=== PATIENT | male | born 1955 | race Two or more races ===

== ENCOUNTER 2017-10-21 13:47 | Inpatient (IN) | payer OTHER ==
--- NOTE | 2017-10-21 16:12 | EDPHY ---
H & P Stated Complaint: lac of sleep, paranoia and depression increasing for 3 weeks. Time Seen by Provider: 10/21/17 16:10 HPI/ROS: HPI: This is a 62-year-old male presents with Chief Complaint: lac of sleep, paranoia and depression increasing for 3 weeks. Location:psych Quality: Annabelle, psychosis Duration: 35-40 days Signs and Symptoms: + auditory hallucinations, no visual command hallucinations , no suicidal ideation with a plan, no homicidal ideation, paranoid Timing: Worsening, acute on chronic Severity: Severe Context: Patient has a history of bipolar manic depressive disorder presents from outpatient, followed by Dr. Davis, recently started on medications over the last few weeks, presents with complaints of insomnia, hearing voices telling him that he is worthless and his family members do not care for him, worsening depression including guilt, diminished self worth, shame, poor appetite, anhedonia. Patient reports that he had ECT therapy approximately 30- 35 years ago. He is requesting it today. 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 His daughter relates that he feels that he is an international fugitive and that people are watching him and are after him. Denies alcohol or recreational drug use. Medical problems include hypertension for which he takes losartan. Modifying Factors: None Comment: ROS: see HPI Constitutional: No fever, no chills, no weight loss Eyes: No blurred vision Respiratory: No shortness of breath, no cough Cardiovascular: No chest pain Gastrointestinal: No nausea, no vomiting, no diarrhea Genitourinary: No dysuria Extremities: No myalgias Neurologic: No weakness, no numbness Skin: No rashes Hematologic: No bruising, no bleeding MEDICAL/SURGICAL/SOCIAL HISTORY: pmh:manic depressive-bipolar disorder, hypertension psh:oral surgery, appendectomy Social history: Lives here in [place]. Daughter lives in [place]. CONSTITUTIONAL: Adult male, calm and cooperative, neat and tidy, awake and alert, no obvious distress HEENT: Atraumatic and normocephalic, PERRL, EOMI. Tympanic membranes clear. Oropharynx clear, no exudate and moist pink mucosa. Airway patent. No lymphadenopathy. No meningismus. Cardiovascular: Normal S1/S2, mild tachycardia, regular rhythm, without murmur rub or gallop. PULMONARY/CHEST: Symmetrical and nontender. Clear to auscultation bilaterally. Good air movement. No accessory muscle usage. ABDOMEN: Soft, nondistended, nontender, no rebound, no guarding, no peritoneal signs, no masses or organomegaly. No CVAT. EXTREMITIES: 2/2 pulses, strength 5/5, no deformities, no clubbing, no cyanosis or edema. NEUROLOGICAL: no focal neuro deficits. GCS 15. SKIN: Warm and dry, no erythema. no rash. Good capillary refill. PSYCH: Relatively good eye contact, no flight of ideas, organized thought process, fair insight and judgment, + auditory hallucinations, no visual command hallucinations, no suicidal ideation with a plan, no homicidal ideation , paranoid Exam Limitations: No limitations - Personal History Current Tetanus/Diphtheria Vaccine: Yes Current Tetanus Diphtheria and Acellular Pertussis (TDAP): Yes - Medical/Surgical History Hx Asthma: No Hx Chronic Respiratory Disease: No Hx Diabetes: No Hx Cardiac Disease: No Hx Renal Disease: No Hx Cirrhosis: No Hx Alcoholism: No Hx HIV/AIDS: No Hx Splenectomy or Spleen Trauma: No Other PMH: pmh:manic depressive,. psh:oral surgery, - Social History Smoking Status: Never smoked Constitutional: Initial Vital Signs Temperature (C) 36.8 C 10/21/17 13:55 Heart Rate 102 H 10/21/17 13:55 Respiratory Rate 16 10/21/17 13:55 Blood Pressure 157/116 H 10/21/17 13:55 O2 Sat (%) 96 10/21/17 13:55 O2 Delivery Mode Room Air Allergies/Adverse Reactions: No Known Allergies Allergy (Unverified 10/21/17 13:59) Home Medications: Medication Instructions Recorded Unobtainable 10/21/17 Medical Decision Making ED Course/Re-evaluation: Patient is here voluntarily. Calm and cooperative. No interventions needed at this time. Labs and UDS ordered. 1720: Reviewed labs and UDS; creatinine slightly above baseline; given 1 L normal saline and ate a meal tray. Medically clear for mental health evaluation. Advised WILL NOT BE ABLE TO BE EVALUATED UNTIL 20290: M1 accepted to 3Dr. Jason Cullen. Patient still remains calm and cooperative. This patient was seen under the supervision of my secondary supervising physician. I evaluated care for this patient independently. Patient's presentation, labs/imaging, treatment and plan of care were discussed with secondary supervising physician. Differential Diagnosis: Differential diagnosis includes but is not limited to functional in situational severe major depression, psychosis, manic episode, paranoia. - Data Points Laboratory Results: Laboratory Results 10/21/17 16:42 10/21/17 16:42 10/21/17 10/21/17 10/21/17 16:42 16:42 16:42 WBC 7.32 10^3/uL 10^3/uL (3.80-9.50) RBC 5.61 10^6/uL 10^6/uL (4.40-6.38) Hgb 16.1 g/dL g/dL (13.7-17.5) Hct 48.9 % % (40.0-51.0) MCV 87.2 fL fL (81.5-99.8) MCH 28.7 pg pg (27.9-34.1) MCHC 32.9 g/dL g/dL (32.4-36.7) RDW 15.4 % H % (11.5-15.2) Plt Count 261 10^3/uL 10^3/uL (150-400) MPV 9.0 fL fL (8.7-11.7) Neut % (Auto) 65.5 % % (39.3-74.2) Lymph % (Auto) 25.5 % % (15.0-45.0) O'Brien % (Auto) 7.1 % % (4.5-13.0) Eos % (Auto) 1.1 % % (0.6-7.6) Baso % (Auto) 0.5 % % (0.3-1.7) Nucleat RBC Rel Count 0.0 % % (0.0-0.2) Absolute Neuts (auto) 4.79 10^3/uL 10^3/uL (1.70-6.50) Absolute Lymphs (auto) 1.87 10^3/uL 10^3/uL (1.00-3.00) Absolute Monos (auto) 0.52 10^3/uL 10^3/uL (0.30-0.80) Absolute Eos (auto) 0.08 10^3/uL 10^3/uL (0.03-0.40) Absolute Basos (auto) 0.04 10^3/uL 10^3/uL (0.02-0.10) Absolute Nucleated RBC 0.00 10^3/uL 10^3/uL (0-0.01) Immature Gran % 0.3 % % (0.0-1.1) Immature Gran # 0.02 10^3/uL 10^3/uL (0.00-0.10) Sodium 143 mEq/L mEq/L (134-144) Potassium 4.2 mEq/L mEq/L (3.5-5.2) Chloride 108 mEq/L mEq/L (97-110) Carbon Dioxide 22 mEq/l mEq/l (22-31) Anion Gap 13 mEq/L mEq/L (8-16) BUN 27 mg/dL H mg/dL (7-23) Creatinine 1.4 mg/dL H mg/dL (0.7-1.3) Estimated GFR 51 Glucose 92 mg/dL mg/dL (70-100) Calcium 9.7 mg/dL mg/dL (8.5-10.4) Urine Opiates Screen NEGATIVE (NEGATIVE) Urine Barbiturates NEGATIVE (NEGATIVE) Ur Phencyclidine Scrn NEGATIVE (NEGATIVE) Ur Amphetamine Screen NEGATIVE (NEGATIVE) U Benzodiazepines Scrn NEGATIVE (NEGATIVE) Urine Cocaine Screen NEGATIVE (NEGATIVE) U Marijuana (THC) Screen NEGATIVE (NEGATIVE) Ethyl Alcohol < 10 mg/dL mg/dL (0-10) Medications Given: Discontinued Medications Sodium Chloride (Ns) 1,000 mls @ 0 mls/hr IV EDNOW ONE; Wide Open PRN Reason: Protocol Stop: 10/21/17 18:02 Last Admin: 10/21/17 18:12 Dose: 1,000 mls Departure - Departure Disposition: [facility] IP Clinical Impression: Bipolar affective, manic, severe w/ psych, Suicidal ideation Condition: Fair
[2017-10-21 17:00] LABS: % IMMATURE GRANULYOCYTES 0.3 % (0.0-1.1); ABSOLUTE IMMATURE GRANULOCYTES 0.02 10^3/uL (0.00-0.10); ADD DIFF? NO; ADD MORPH? NO; ADD SCAN? NO; ATYPICAL LYMPHOCYTE FLAG 0 (0-99); FRAGMENT RBC FLAG 0 (0-99); HEMATOCRIT 48.9 % (40.0-51.0); HEMOGLOBIN 16.1 g/dL (13.7-17.5); LEFT SHIFT FLG 0 (0-99); LIPEMIA HEMOLYSIS FLAG 80 (0-99); MEAN CELL HEMOGLOBIN 28.7 pg (27.9-34.1); MEAN CELL HEMOGLOBIN CONCENTR. 32.9 g/dL (32.4-36.7); MEAN CELL VOLUME 87.2 fL (81.5-99.8); PLATELET CLUMPS FLAG 0 (0-99); PLATELET COUNT 261 10^3/uL (150-400); RED BLOOD CELL COUNT 5.61 10^6/uL (4.40-6.38); RED CELL DISTRIBUTION WIDTH 15.4 % (11.5-15.2)
[2017-10-21 17:20] LABS: ANION GAP 13 mEq/L (8-16); CALCIUM 9.7 mg/dL (8.5-10.4); CARBON DIOXIDE 22 mEq/l (22-31); CHLORIDE 108 mEq/L (97-110); CREATININE 1.4 mg/dL (0.7-1.3); ETHANOL SERUM < 10 mg/dL (0-10); GLOMERULAR FILTRATION RATE 51; GLUCOSE 92 mg/dL (70-100); POTASSIUM 4.2 mEq/L (3.5-5.2); SODIUM 143 mEq/L (134-144)
[2017-10-21] MEDS ORDERED: NS 1,000 ML IV ONE (18:01)
[2017-10-22] MEDS ORDERED: MAG HYDROX/AL HYDROX/SIMETH 30 ML UDCUP PO PRN (02:06)
[2017-10-22] MEDS ORDERED: ACETAMINOPHEN 325 MG TAB PO PRN (02:06)
[2017-10-22] MEDS ORDERED: OLANZapine 5 MG TAB PO PRN (02:08)
[2017-10-22] MEDS: LOSARTAN POTASSIUM 25 MG TAB PO SCH (12:18)
--- NOTE | 2017-10-22 15:53 | BCON ---
[f rep st] [facility] CON[facility] INTERNAL MEDICINE CONSULTATION DATE OF CONSULTATION: 10/22/2017 REFERRING PHYSICIAN: Dom Barker MD REASON FOR REFERRAL: Medical clearance for inpatient [place] hospital stay. HISTORY OF PRESENT ILLNESS: This patient came to the [facility] Emergency Department for admission to [facility] for the purpose of obtaining electroconvulsive therapy for depression. He had previous electroconvulsive therapy which was quite successful several years ago, and he has been in the care of a psychiatrist in [place], [place], where he lives, without good response to medications. He complains of tinnitus, which he has had for several years and which precipitated his depression initially. He reports he has had extensive evaluation of the tinnitus including brain imaging and attempted treatment with a number of different modalities without success. He acknowledges that the tinnitus is worse when he is under stress or has impaired sleep. He feels fatigued at present and has had poor sleep lately, but otherwise is without acute complaint. MEDICATIONS: Prior to admission: 1. Losartan 25 mg p.o. daily. 2. Quetiapine 150 mg p.o. at bedtime. 3. Clonazepam 1 mg p.o. at bedtime. PAST MEDICAL HISTORY: 1. Depression. 2. Tinnitus. 3. Chronic kidney disease. 4. Hypertension. PAST SURGICAL HISTORY: He has had oral surgery after which the tinnitus commenced. 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 He smoked when he was young, but has quit for 27 years. He does not use alcohol. He is , but has marital discord and has been asked to move out of his home by his . FAMILY HISTORY: His father of a stroke. His mother of intracranial hemorrhage after a fall. His mother had depression. REVIEW OF SYSTEMS: He is concerned about not getting enough fluids. He received a liter of IV fluids in the emergency department and thought that was not enough. He says he urinates more than he drinks. He does not feel thirsty at present. He has had some weight loss and erratic eating in recent weeks to months due to not having money. He reports occasional chest pain. He denies dyspnea on exertion. He denies cough. He denies palpitations. He denies fevers or chills. He denies changes in his bowel habits. He reports frequent urination and asks whether a prostate exam can be done while he is here. Otherwise, a 10-point review of systems is negative. PHYSICAL EXAM: VITAL SIGNS: Blood pressure early this morning was 169/114. This was prior to receiving a dose of losartan. Heart rate 87, respiratory rate 14, oxygen saturation 95% on room air. Temperature is 36.6 degrees centigrade. His weight is 69.9 kg for a body mass index of 24.9. GENERAL: This is a well-nourished, well-developed man, appears his chronologic age, sitting up in bed, cooperative, and in no acute distress, with his daughter present. HEENT: Extraocular movements are intact. Pupils are equal, round, reactive to light. Mucous membranes are moist. Dentition is in good condition. There are no oropharyngeal mucosal lesions and no posterior oropharyngeal mucus. NECK: Supple with no thyromegaly. HEART: There is a regular rate and rhythm with no murmurs, rubs, or gallops. LUNGS: Clear to auscultation bilaterally. ABDOMEN: Soft, nontender, nondistended with normoactive bowel sounds. EXTREMITIES: There is no cyanosis, clubbing, or edema. Radial and dorsalis pedis pulses are 2+ bilaterally. NEUROLOGIC: He is alert and oriented x3. He is somewhat slow to answer questions and occasionally somewhat vague. Cranial nerves 2-12 are grossly intact. There is no focal weakness. Sensation is intact to light touch. Deep tendon reflexes are globally hypoactive. LABORATORY STUDIES: Drawn in the emergency department, CBC was overall within normal limits. He had a slight elevation in his red cell distribution width at 15.4 with the upper limit of normal being 15.2. Serum chemistry revealed an elevated creatinine at 1.4 and a BUN of 27. Otherwise, renal function and electrolytes were within normal limits. Serum toxicology screen was negative for ethyl alcohol and urine toxicology screen was negative for any substances of abuse. He had recent testing on 10/11/2017, in which he also had renal insufficiency with an estimated creatinine clearance of 57. TSH was normal, creatine kinase was negative. ASSESSMENT/RECOMMENDATIONS: 1. Mental health issues, pending further evaluation and management per Psychiatry and the mental health team. 2. Chronic kidney disease stage 3. Unclear if he has been consistent with taking losartan. There may be an element of dehydration with the elevated BUN, however, it is less than a 20:1 ratio of BUN to creatinine, so this may be chronic. We will repeat a BMP in the morning as he was hydrated in the emergency department after lab tests were drawn. 3. Hypertension. Continue losartan. Given how high his blood pressure is, he will likely need more than 1 agent. Will follow along and add or adjust medications as necessary. 4. Tinnitus, unclear etiology. Observe for improvement as his sleep improves and his psychiatric condition is treated. 5. Chest pain, atypical with a recent normal creatine kinase. I assume that EKG will be performed prior to initiating ECT. It is reassuring that he had recently had a normal creatine kinase. I see no medical contraindications to this patient's continued stay in the inpatient rehabilitation unit or to any psychiatric medications or procedures. Thank you very much for including me in the care of this patient, and please do not hesitate to contact me or the hospitalist service should there be need for further medical evaluation. /[id number]/MODL MTDD
--- NOTE | 2017-10-22 15:54 | BAPA ---
[f rep st] ADMISSION PSYCHIATRIC ASSESSMENT DATE OF SERVICE: 10/22/2017 CHIEF COMPLAINT: "I have many worries and a lot of guilt and shame." HISTORY OF PRESENT ILLNESS: Patient is a 62-year-old male, originally of [place] extraction, who has a history of major depression dating back to his 20s, but has been a focus of clinical attention sin ce 2013. Around this time, he states he had some problems with dental implants that had become infec thiago and when he had them removed and had a root canal performed, he began to hear a hissing sound in his ears. He stated that this was very troublesome to him and that he saw many doctors in regard to possible tinnitus and that nothing was improving it. He states that he then had trouble working and felt like he may have lost his healing touch. 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 He states that this snowballed into a full depression in which he was experiencing a depressed mood, feelings of helplessness and hopelessness, low energy, decreased appetite, insomnia , trouble concentrating, and the emergence of some psychosis. He apparently had become paranoid that others were trying to harm him or his and that they may be acting against him in a professional manner as well. 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 He then became convinced his was and his family took him for several emergent psychiatric evaluations. Eventually he ended u p at [facility] where he was admitted from 08/09/2014 to 09/10/2014, for major depressi on with psychosis. That time he was treated with combination of nortriptyline and olanzapine, which the discharge summary from [facility] indicates was helpful. He was, however, slow to respond and was then also treated with a course of 7 ECT treatments. The specifics of the ECT treatments are no t listed in the discharge summary. They stated, however, he had a robust response to this returning to euthymic state and being discharged in the near normal condition. The patient is somewhat vague a bout the details that occurred after this, but the notes from [facility] indicate that he was move d to Day Treatment for some period of time and then he returned home. The patient states that he saw Nedra Roblero, who is a nurse practitioner near his home in [place], [place], and she continued to pres cribe his medications, but then he discontinued them himself at some point. He states that he mateusz malhotra felt like he did not need them. 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 He states that his brother passnoel d away about a month and a half ago, and around that time, he again began to feel very depressed. He states that his discovered that he had been giving his brother some money as he was fairly dest itute and was undergoing cancer treatments and was upset about this because they themselves were suff ering significant financial problems as he had not consistently worked for some time. He reports fee ling more and more depressed, and states that his took him to [place], [place], to the [facility] and spent the last of her inheritance money from her father to pay for treatment s there. He states that he stayed there for several weeks, but then returned home because he felt li ke the raw vegan diet had "completely thrown my system off." He states his is upset about this and that it stirred up past conflicts over money and over him having an affair approximately 3 years ago. It culminated with her requesting that he leave the home on the day prior to admission. The susan faria's daughter came from [place] to check on him and take him to the hospital where he was evalu ated in the emergency department in [place] and then transferred on the recommendation of [facility] outpatient psychiatrist, Dr. Walter, to come to [facility] for ECT evaluation. It is of note that Dr. Walter did perform 1 ketamine infusion with him in the week prior to coming her e, and this was subjectively helpful. He was also prescribed Seroquel and clonazepam, but states kirill t his mood continued to worsen, that his worries and fears had increased along similar themes as befo re. He was increasingly helpless and hopeless, feeling like he had no reason to live and that his in somnia had worsened. He states that with clonazepam and Seroquel, he was still only able to sleep ap proximately a total of 20 hours in the previous month. He again believes that he has lost his healin g touch and that he is unable to work and questions whether he will be able to work at any time in th e future. Additional symptoms at this time include feeling afraid and hypervigilant with significant hyper startle, decreased appetite and 30 pounds weight loss. PAST PSYCHIATRIC HISTORY: Largely as above. He was hospitalized from 08/09-09/10/2014, at [facility], where he received 7 ECT treatments with good effect. He has only taken to my knowledge, the no rtriptyline, Zyprexa, Ativan and Klonopin in the past. There is mention in the [facility] report that he had an overnight stay at a psychiatric hospital about 4 years ago prior to going to [facility], but the patient does not recall this. The patient is currently seeing Dr. Walter but he has only seen him twice. The patient has no history of suicidality or suicide attempts. ALLERGIES: The patient states he could be allergic to some form of antibiotics, though is unsure. CURRENT MEDICATIONS: The patient was prescribed Seroquel XR 150 mg nightly and clonazepam 1 mg at h. s., though he states he had not been taking these recently. He had also been prescribed losartan in the past for hypertension. PAST MEDICAL HISTORY: Significant for hypertension. SOCIAL HISTORY: Patient is really from [place] He moved to the [place] in [place] to the [place]. He grew up in a family where he states his mother was very depressed, and never left the home and frequently did not leave her bed. The patient has been 3 times currently for the l ast 18 years. He has 3 children with his 2nd and is closest to his daughter, Shreya, who lives [place], [place]. He currently lives in [place], [place], with his and works in healing ar ts and body manipulation. States he has had a very successful career doing that until the last 3 yea rs in which he has been unable to work consistently. He denies any actual legal problems though he i s afraid that he may be in trouble due to lack of proper licensure in his practice over many years. 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 He states that she receive d an inheritance from her father and that they have now spent that and that he is concerned that they will not be able to pay the mortgage this coming month. SUBSTANCE ABUSE HISTORY: Patient denies any substance use. He does note having used CBD oil and THC in the past, which resulted in hallucinations and paranoia. FAMILY HISTORY: The patient has an older brother who is treated for major depression, apparently in [place], including ECT and his mother apparently had lifelong severe major depression that was untreated . ADMISSION LABORATORY: CBC is normal. Serum chemistries are normal. BUN is slightly up at 27 and cr eatinine is up at 1.4. Urine drug screen is negative for all substances. Alcohol is less than detec table. MENTAL STATUS EXAMINATION: Reveals a healthy-appearing, adequately nourished, adequately groomed mal e. He is dressed in hospital garb. He is somewhat reserved and quiet, though pleasant and cooperati ve. He interacts well with the examiner, displaying good eye contact and normal social interaction. His affect is blunted, somewhat dysphoric, stable and appropriate. His mood is described as "depres sed." His thought process is generally linear and goal directed, though he tends to wander some in h is descriptions of things and requires some degree of redirection. His thought content reveals no ov ert paranoia at this time. Stating that he does not believe his is or that others are tryi ng to harm him, but he does state that he himself even believes that his concern over aspects of his health including the tinnitus and his loss of his healing power may be exaggerated. He states his wi fe has told him this is paranoia, but he is unsure. He is alert and oriented to person, place, time, and situation, and his sensorium is clear. His intellect appears to be at least average as evidence d by his occupational history fund of knowledge, and vocabulary. He denies any thoughts of suicide, homicide or violence at this time or in the past. His insight and judgment appear to be good. IMPRESSION: Major depressive disorder, recurrent, severe, with likely psychosis, recurrent illness, marital conflict, unemployment, financial problems, possible housing problems. The patient is a pleasant 62-year-old male who presents at this time on referral from his outpatient psychiatrist, Dr. Waletr, for ECT evaluation. He has had a significant social decline in the last 3 years and had 1 episode of ECT treatment at [facility], which family reports had excellent benef it for him. He states that this time he would like to participate in ECT, but is concerned over the cost and whether insurance would authorize that. I have discussed with him that we would obtain prio r authorization for any treatment and that in addition to consideration of ECT, we should also luis garcia review his past psychiatric treatments, medication-rollins, though it appears apparent to me at thi s time having gathered some additional collateral information that he has had a few medication trials . He has a fear that may or may not be realistic that any of the medications have worsened his tinni tus and/or his hypertension and he is very hesitant to try any medications. He is agreeable to resta rting the Seroquel at his previous dose and clonazepam to help with sleep and anxiety and we will do that at least in the short term until we make a further treatment plan. I have discussed with him in general the possible use of ECT and he states he is familiar with the procedure having had it done 3 years ago. I reviewed with him the general overview of the scheduled ECT treatments and the course as well as some of the major side effects and risks. I have not done a full informed consent with bianca carlos at this point, as I will do this and provide educational materials as we get closer to our decision -making point, likely in the next 24-48 hours. We will address this and know better if we are going to proceed with ECT, medication changes, or other plans. Estimated length of stay is 7-10 days. /[id number]/MODL
[2017-10-22] MEDS: clonazePAM 1 MG TAB PO SCH (20:14)
[2017-10-22] MEDS: QUEtiapine FUMARATE 100 MG TAB PO SCH (21:04)
[2017-10-23 08:54] LABS: ANION GAP 12 mEq/L (8-16); CALCIUM 9.9 mg/dL (8.5-10.4); CARBON DIOXIDE 23 mEq/l (22-31); CHLORIDE 112 mEq/L (97-110); CREATININE 1.2 mg/dL (0.7-1.3); GLOMERULAR FILTRATION RATE > 60; GLUCOSE 100 mg/dL (70-100); POTASSIUM 4.2 mEq/L (3.5-5.2); SODIUM 147 mEq/L (134-144)
[2017-10-23] MEDS: LOSARTAN POTASSIUM 25 MG TAB PO SCH (09:02)
[2017-10-23] MEDS ORDERED: LOSARTAN POTASSIUM 25 MG TAB PO ONE (09:13)
[2017-10-23] MEDS: amLODIPine BESYLATE 5 MG TAB PO SCH (10:56)
--- NOTE | 2017-10-23 13:07 | SOAPPROG ---
SOAP Progress Note Assessment/Plan: Assessment: # HTN * Inadequate response to losartan 25 mg q.day. * Increased to 50 mg and added amlodipine 2.5 mg q.day. * Continue to monitor. # CKD stage III. Creatinine and GFR normalized after hydration. Encouraged normal p.o. hydration. Needs good blood pressure control. 10/23/17 13:05 Subjective: Follow-up on hypertension and renal insufficiency. He complains of continued insomnia. Denies lightheadedness, dyspnea or cough and is otherwise without complaint. Objective: Vital Signs Temp Pulse Resp BP Pulse Ox 36.4 C 88 16 164/107 H 96 10/23/17 10:50 10/23/17 10:50 10/23/17 10:50 10/23/17 10:56 10/23/17 10:50 Laboratory Results 10/23/17 06:30 Physical Exam - Physical Exam General Appearance: WD/WN, alert, no apparent distress Respiratory: No respiratory distress, No accessory muscle use Skin: normal color, warm/dry Neuro/Psych: no motor/sensory deficits, alert, normal mood/affect, oriented x 3 ICD10 Worksheet Patient Problems: Problems Problem Status Onset Bipolar affective, manic, severe w/ psych Acute Suicidal ideation Acute
[2017-10-23] MEDS: QUEtiapine FUMARATE 100 MG TAB PO SCH (19:22)
[2017-10-23] MEDS: clonazePAM 1 MG TAB PO SCH (19:23)
--- NOTE | 2017-10-23 19:55 | SOAPPROG ---
SOAP Progress Note Assessment/Plan: Assessment: Plan: 10/23/17 19:53 MDD: Remains severely depressed with paranoid delusions. Will [facility]. Await pre- auth for ECT. Subjective: Pt seen, discussed with staff. Isolative, perseverative on negative themes. Continues to doubt the potential benefit from all treatments. Daughter interviewed and states he is delusionally negativistic in her opinion. I discussed with him at length the risks, benefits and alternatives of ECT. He states he is aware of these due to his previous treatments. He continues to voice interest in ECT and refusal of psychotropic meds. The latter seems linked to somatic delusions. Objective: Vital Signs Temp Pulse Resp BP Pulse Ox 36.4 C 76 18 151/96 H 97 10/23/17 10:50 10/23/17 17:40 10/23/17 17:40 10/23/17 17:40 10/23/17 17:40 Laboratory Results 10/23/17 06:30 - Time Spent With Patient Time Spent With Patient: 25" ICD10 Worksheet Patient Problems: Problems Problem Status Onset Bipolar affective, manic, severe w/ psych Acute Suicidal ideation Acute
[2017-10-24] MEDS: amLODIPine BESYLATE 5 MG TAB PO SCH (08:39)
[2017-10-24] MEDS: LOSARTAN POTASSIUM 25 MG TAB PO SCH (13:27)
--- NOTE | 2017-10-24 19:10 | SOAPPROG ---
SOAP Progress Note Assessment/Plan: Assessment: Plan: 10/23/17 19:53 MDD: Remains severely depressed with paranoid delusions. Will [facility]. Await pre- auth for ECT. 10/24/17 19:19 MDD: No change. Will attempt to secure reasonable plan for ECT, but will not begin acute course until reasonable outpatient plan is in place. Subjective: Pt seen, discussed with staff. He states, "I am frozen." Reports feeling hopeless and hopeless, "Like I'll never get over this. I have no life. I have no money, no home, no help." States he is fearful for the future and overwhelmed by prospect of caring for himself. He states, 'I will if I have to leave here." Cannot identify any supports or options for outpatient treatment. Objective: Vital Signs Temp Pulse Resp BP Pulse Ox 36.3 C 90 12 151/101 H 97 10/24/17 00:30 10/24/17 08:35 10/24/17 08:35 10/24/17 13:27 10/24/17 00:30 Laboratory Results 10/23/17 06:30 MSE: Calm, coop. Affect is dysphoric, blunted, tearful. Mood is "terrible, the worst." TP is linear. TC reveals ongoing paranoia in regards to believing he will be arrested for "severe criminal behavior". Unable to problem solve or participate in discussion of options for treatment or discharge. Remains adamant that ECT is the only thing that will help him. Denies SI but states he "won't survive" if he leaves the hospital. - Time Spent With Patient Time Spent With Patient: 25" ICD10 Worksheet Patient Problems: Problems Problem Status Onset Bipolar affective, manic, severe w/ psych Acute Suicidal ideation Acute
[2017-10-24] MEDS: QUEtiapine FUMARATE 100 MG TAB PO SCH (20:20)
[2017-10-24] MEDS: LORazepam 1 MG TAB PO PRN (20:21)
[2017-10-24] MEDS: clonazePAM 1 MG TAB PO SCH (21:14)
[2017-10-25] MEDS ORDERED: LIDOCAINE 2% 5 ML SDV ID ONE (04:00)
[2017-10-25] MEDS ORDERED: CITRIC ACID/SODIUM CITRATE 30 ML UDCUP PO ONE (04:00)
[2017-10-25] MEDS ORDERED: ONDANSETRON DISINTEGRATING 4 MG TAB PO ONE (04:00)
[2017-10-25] MEDS ORDERED: NS 1,000 ML IV ONE (04:00)
[2017-10-25] MEDS: LOSARTAN POTASSIUM 25 MG TAB PO SCH (11:23)
[2017-10-25] MEDS: amLODIPine BESYLATE 5 MG TAB PO SCH (11:24)
--- NOTE | 2017-10-25 11:33 | CPEKG ---
Heart Rate: 78 RR Interval: 769 P-R Interval: 156 QRSD Interval: 92 QT Interval: 408 QTC Interval: 465 P Jones: 67 QRS Jones: 90 T Wave Jones: 60 EKG Severity - NORMAL ECG - EKG Impression: SINUS RHYTHM Electronically Signed By: Logan Burgos 25-Oct-2017 11:47:31
--- NOTE | 2017-10-25 11:39 | SOAPPROG ---
SOAP Progress Note Assessment/Plan: Assessment: Plan: 10/23/17 19:53 MDD: Remains severely depressed with paranoid delusions. Will [facility]. Await pre- auth for ECT. 10/24/17 19:19 MDD: No change. Will attempt to secure reasonable plan for ECT, but will not begin acute course until reasonable outpatient plan is in place. 10/25/17 11:41 MDD: Worsening. The psychosis is more evident today. He is clearly gravely disabled. The severity of his symptoms and his past response to ECT are indicators for additional ECT treatment at this time. I do not believe he is able to adequately care for his basic needs in the community at this time and family is adamant that they are unable to care for him due to the severity of his symptoms. Will attempt to obtain additional inpatient days to allow for an adequate acute course of treatment. Subjective: Pt seen, discussed at length with unit staff and ECT team. He remains an excellent candidate for acute course ECT and he and his family are strongly desirous of this. He remains prostrate, inactive, unable to envision helping himself in any way. Family including and daughter have stated adamantly that they are unable to care for him at home. He is unable to eat of sleep and becomes easily agitated and paranoid. Pt's states this is the same presentation as 08/01 when he received ECT at [facility] with excellent benefit. Pt states he is "frozen" and "locked out." He states he cannot make decisions or care for himself out of the hospital. His PO intake has declined and he refused meals yesterday. He continues to report feeling depressed, helpless, hopeless and afraid. He is paranoid that he has committed a crime and that the government wants to put him in [facility]. He believes, "Everyone hates me because I am a criminal and a bad person." Objective: Vital Signs Temp Pulse Resp BP Pulse Ox 36.6 C 84 12 142/106 H 97 10/25/17 11:28 10/25/17 11:28 10/25/17 11:28 10/25/17 11:28 10/25/17 11:28 Laboratory Results 10/23/17 06:30 MSE: Displays some psychomotor agitation, pacing slowing in his room. Unable to sit still or calm himself. His speech is low and slow. His affect is dysphoric, tearful, blunted. His mood is "very depressed, at the bottom." TP is linear though he exhibits some notable delay in responses. His TC reveals paranoid thoughts. - Time Spent With Patient Time Spent With Patient: 25" ICD10 Worksheet Patient Problems: Problems Problem Status Onset Bipolar affective, manic, severe w/ psych Acute Suicidal ideation Acute
[2017-10-25] MEDS ORDERED: KETOROLAC 30 MG/1 ML SDV ONE (15:16)
[2017-10-25] MEDS ORDERED: ONDANSETRON 4 MG/2 ML VIAL ONE (15:16)
[2017-10-25] MEDS ORDERED: ETOMIDATE 20 MG/10 ML VIAL ONE (15:16)
[2017-10-25] MEDS ORDERED: GLYCOPYRROLATE 0.2 MG/1 ML VIAL ONE (15:16)
[2017-10-25] MEDS ORDERED: fentaNYL 100 MCG/2 ML INJ ONE (15:16)
[2017-10-25] MEDS ORDERED: MIDAZOLAM 2 MG/2 ML VIAL ONE (15:16)
[2017-10-25] MEDS ORDERED: ROCURONIUM 50 MG/5 ML VIAL ONE (15:17)
[2017-10-25] MEDS ORDERED: SUCCINYLCHOLINE CHLORIDE 200 MG/10 ML VIAL ONE (15:17)
[2017-10-25] MEDS ORDERED: ONDANSETRON DISINTEGRATING 4 MG TAB ONE (15:29)
[2017-10-25] MEDS ORDERED: CITRIC ACID/SODIUM CITRATE 30 ML UDCUP ONE (15:29)
[2017-10-25] MEDS ORDERED: HYDROCODONE/APAP 5/325 TAB ONE (16:41)
[2017-10-25] MEDS: clonazePAM 1 MG TAB PO SCH (21:41)
[2017-10-25] MEDS: QUEtiapine FUMARATE 100 MG TAB PO SCH (21:42)
[2017-10-25] MEDS: TAMSULOSIN HCL 0.4 MG CAP PO SCH (21:42)
[2017-10-26] MEDS: LOSARTAN POTASSIUM 25 MG TAB PO SCH (09:05)
[2017-10-26] MEDS: amLODIPine BESYLATE 5 MG TAB PO SCH (09:05)
[2017-10-26] MEDS: MAGNESIUM HYDROXIDE 30 ML UDCUP PO PRN (09:07)
[2017-10-26] MEDS: TAMSULOSIN HCL 0.4 MG CAP PO SCH (09:11)
--- NOTE | 2017-10-26 14:28 | SOAPPROG ---
SOAP Progress Note Assessment/Plan: Assessment: Per Dr. Barker's notes: Plan: 10/23/17 19:53 MDD: Remains severely depressed with paranoid delusions. Will [facility]CM. Await pre- auth for ECT. 10/24/17 19:19 MDD: No change. Will attempt to secure reasonable plan for ECT, but will not begin acute course until reasonable outpatient plan is in place. 10/25/17 11:41 MDD: Worsening. The psychosis is more evident today. He is clearly gravely disabled. The severity of his symptoms and his past response to ECT are indicators for additional ECT treatment at this time. I do not believe he is able to adequately care for his basic needs in the community at this time and family is adamant that they are unable to care for him due to the severity of his symptoms. Will attempt to obtain additional inpatient days to allow for an adequate acute course of treatment. 10/26/17 14:23 1. CCM - some improvement, less psychomotor retardation since ECT started 2. Less neurovegetative sxs - he ate 100% of breakfast today 3. Complains of constipation - encouraged use of stool softeners, will order Sennokot Subjective: Met with patient, reviewed chart and d/w staff. Patient was out of his room for breakfast and lunch, he ate 100% of meals, which is significant improvement. He still has psychomotor retardation and slowed speech, however, there has been some improvement. Patient is not as lethargic and more ambulatory than previous days. Patient says he is "bored" on unit b/c he has "nothing to do." He admits to trouble sleeping last night after upsetting conversation with his . He says "I've really hurt her...done so much damage, financial, emotional, heart and soul." He talks about strained relationship with both his and daughter , who went back to her home in [place], [place] yesterday. Patient denies SI/HI, no AH/VH today. Objective: Vital Signs Temp Pulse Resp BP Pulse Ox 36.6 C 90 16 104/70 96 10/26/17 00:30 10/26/17 00:30 10/26/17 00:30 10/26/17 09:05 10/26/17 00:30 Laboratory Results 10/23/17 06:30 MSE: Slowed speech, more fluent and spontaneous than previous days. 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
[2017-10-26] MEDS: DOCUSATE SODIUM 100 MG CAP PO SCH ×2 (16:41→21:38)
[2017-10-26] MEDS: QUEtiapine FUMARATE 100 MG TAB PO SCH (21:38)
[2017-10-26] MEDS: clonazePAM 1 MG TAB PO SCH (21:38)
[2017-10-27] MEDS: amLODIPine BESYLATE 5 MG TAB PO SCH (09:07)
[2017-10-27] MEDS: TAMSULOSIN HCL 0.4 MG CAP PO SCH (09:08)
[2017-10-27] MEDS: DOCUSATE SODIUM 100 MG CAP PO SCH ×2 (09:08→21:09)
[2017-10-27] MEDS: LOSARTAN POTASSIUM 25 MG TAB PO SCH (09:08)
--- NOTE | 2017-10-27 14:04 | SOAPPROG ---
SOAP Progress Note Assessment/Plan: Assessment: Per Dr. Barker's notes: Plan: 10/23/17 19:53 MDD: Remains severely depressed with paranoid delusions. Will CCM. Await pre- auth for ECT. 10/24/17 19:19 MDD: No change. Will attempt to secure reasonable plan for ECT, but will not begin acute course until reasonable outpatient plan is in place. 10/25/17 11:41 MDD: Worsening. The psychosis is more evident today. He is clearly gravely disabled. The severity of his symptoms and his past response to ECT are indicators for additional ECT treatment at this time. I do not believe he is able to adequately care for his basic needs in the community at this time and family is adamant that they are unable to care for him due to the severity of his symptoms. Will attempt to obtain additional inpatient days to allow for an adequate acute course of treatment. 10/26/17 14:23 1. CCM - some improvement, less psychomotor retardation since ECT started 2. Less neurovegetative sxs - he ate 100% of breakfast today 3. Complains of constipation - encouraged use of stool softeners, will order Senokot 10/27/17 14:00 1. Patient exhibit much less psychomotor retardation and vegetative sxs since ECT 2. Patient slept 8 hrs last night, but c/o not feeling "rested" 3. Patient ate 100% of meals today 4. Refused flomax b/c he's afraid of sexual SE's ("prolonged erection") 5. ECT tomorrow Subjective: Met with patient, reviewed chart and d/w staff. Patient is pacing the halls. He has been out of his room and more visible in milieu, but does not go to groups or participate in activities. He still presents with flat affect and depressed mood, however, he has been eating all his meals and slept for 8 hrs last night. He still feels helpless and hopeless and says he has "nothing to look forward to." However, he also told staff that he may go stay with his SOC after discharge and visit Jenn with her. Objective: Vital Signs Temp Pulse Resp BP Pulse Ox 36.6 C 88 16 124/85 H 94 10/27/17 07:02 10/27/17 07:02 10/27/17 07:02 10/27/17 09:08 10/27/17 07:02 Laboratory Results 10/23/17 06:30 MSE: Affect: Flat Mood: "I don't see any hope" TP: Linear TC: Denies any SI/ HI, no AH/VH Insight/Judgment: Fair - Time Spent With Patient Time Spent With Patient: 20" - Pending Discharge Pending Discharge Within 24 Hours: No Pending Discharge Within 48 Hours: No ICD10 Worksheet Patient Problems: Problems Problem Status Onset Bipolar affective, manic, severe w/ psych Acute Suicidal ideation Acute
[2017-10-27] MEDS: clonazePAM 1 MG TAB PO SCH (20:19)
[2017-10-27] MEDS: QUEtiapine FUMARATE 100 MG TAB PO SCH (21:09)
[2017-10-28] MEDS ORDERED: CITRIC ACID/SODIUM CITRATE 30 ML UDCUP PO ONE (04:00)
[2017-10-28] MEDS ORDERED: NS 1,000 ML IV ONE (04:00)
[2017-10-28] MEDS ORDERED: LIDOCAINE 2% 5 ML SDV ID ONE (04:00)
[2017-10-28] MEDS ORDERED: ONDANSETRON DISINTEGRATING 4 MG TAB PO ONE (04:00)
[2017-10-28] MEDS ORDERED: GLYCOPYRROLATE 0.2 MG/1 ML VIAL ONE (06:01)
[2017-10-28] MEDS ORDERED: ETOMIDATE 20 MG/10 ML VIAL ONE (06:01)
[2017-10-28] MEDS ORDERED: fentaNYL 100 MCG/2 ML INJ ONE (06:01)
[2017-10-28] MEDS ORDERED: MIDAZOLAM 2 MG/2 ML VIAL ONE (06:01)
[2017-10-28] MEDS ORDERED: ONDANSETRON 4 MG/2 ML VIAL ONE (06:01)
[2017-10-28] MEDS ORDERED: ROCURONIUM 50 MG/5 ML VIAL ONE (06:02)
[2017-10-28] MEDS ORDERED: SUCCINYLCHOLINE CHLORIDE 200 MG/10 ML VIAL ONE (06:02)
[2017-10-28] MEDS ORDERED: CITRIC ACID/SODIUM CITRATE 30 ML UDCUP ONE (06:47)
[2017-10-28] MEDS ORDERED: ONDANSETRON DISINTEGRATING 4 MG TAB ONE (06:47)
[2017-10-28] MEDS: LOSARTAN POTASSIUM 25 MG TAB PO SCH (06:48)
[2017-10-28] MEDS: amLODIPine BESYLATE 5 MG TAB PO SCH (06:48)
[2017-10-28] MEDS ORDERED: LABETALOL HCL 5 MG/ML 20 ML MDV ONE (07:16)
[2017-10-28] MEDS ORDERED: HYDROCODONE/APAP 5/325 TAB PO PRN (07:28)
[2017-10-28] MEDS: DOCUSATE SODIUM 100 MG CAP PO SCH ×2 (08:52→20:19)
[2017-10-28] MEDS: TAMSULOSIN HCL 0.4 MG CAP PO SCH (09:11)
--- NOTE | 2017-10-28 11:32 | SOAPPROG ---
SOHARRY Progress Note Assessment/Plan: Assessment: Plan: 10/23/17 19:53 MDD: Remains severely depressed with paranoid delusions. Will [facility]. Await pre- auth for ECT. 10/24/17 19:19 MDD: No change. Will attempt to secure reasonable plan for ECT, but will not begin acute course until reasonable outpatient plan is in place. 10/25/17 11:41 MDD: Worsening. The psychosis is more evident today. He is clearly gravely disabled. The severity of his symptoms and his past response to ECT are indicators for additional ECT treatment at this time. I do not believe he is able to adequately care for his basic needs in the community at this time and family is adamant that they are unable to care for him due to the severity of his symptoms. Will attempt to obtain additional inpatient days to allow for an adequate acute course of treatment. 10/28/17 11:31 MDD: Remains severely depressed with continued delusional psychosis and grave disability. The latter is based on his inability to formulate a plan to care for himself, act in his own interests or effectively communicate his needs. Will [facility]. Subjective: Pt seen, discussed with staff, chart reviewed. He remains withdrawn, dysphoric , helpless, hopeless. He states he "can't go on." Cannot participate in discussion of future, stating repeatedly, "I have no future." Staff notes some improvement in anxiety after first ECT treatment. Underwent bilateral ECT this morning without complication. Remains delusionally focused on numerous physical c/o's. Refuses Flomax due to delusional belief he is in renal failure. He also remains convinced he is cursed and has lost his spiritual power. Objective: Vital Signs Temp Pulse Resp BP Pulse Ox 36.7 C 76 12 153/91 H 93 10/28/17 08:11 10/28/17 09:26 10/28/17 09:26 10/28/17 09:26 10/28/17 09:26 Laboratory Results 10/23/17 06:30 - Time Spent With Patient Time Spent With Patient: 35" - Pending Discharge Pending Discharge Within 24 Hours: No Pending Discharge Within 48 Hours: No ICD10 Worksheet Patient Problems: Problems Problem Status Onset Bipolar affective, manic, severe w/ psych Acute Suicidal ideation Acute
[2017-10-28] MEDS: MAGNESIUM HYDROXIDE 30 ML UDCUP PO PRN (13:08)
[2017-10-28] MEDS: clonazePAM 1 MG TAB PO SCH (20:19)
[2017-10-28] MEDS: QUEtiapine FUMARATE 100 MG TAB PO SCH (20:19)
[2017-10-29] MEDS: MAGNESIUM HYDROXIDE 30 ML UDCUP PO PRN (07:09)
[2017-10-29] MEDS: DOCUSATE SODIUM 100 MG CAP PO SCH (08:56)
[2017-10-29] MEDS: amLODIPine BESYLATE 5 MG TAB PO SCH (08:56)
[2017-10-29] MEDS: LOSARTAN POTASSIUM 25 MG TAB PO SCH (08:56)
[2017-10-29] MEDS: TAMSULOSIN HCL 0.4 MG CAP PO SCH (08:56)
[2017-10-29] MEDS ORDERED: SENNOSIDES 1 TAB PO PRN (14:40)
--- NOTE | 2017-10-29 14:52 | SOAPPROG ---
SOAP Progress Note Assessment/Plan: Assessment: # HTN * Much improved blood pressure control though variable and often higher than target. * Continue losartan 50 mg daily and amlodipine 2.5 mg q.day. * Due to subjective sense of dizziness, will not increase medications at present. * Continue to monitor. # Possible BPH. * Bladder scan ordered prior to initiating tamsulosin was not done. Will ask nursing to do postvoid residual bladder scan. * Continue tamsulosin. * Provided reassurance regarding lack of adverse effects. * As he is completely not orthostatic, subjective dizziness today was likely not due to tamsulosin. # CKD stage III. Creatinine and GFR normalized after hydration. Encouraged normal p.o. hydration. Needs good blood pressure control. Provided reassurance that it is unlikely that he is urinating more fluid than he is taking in. 10/29/17 14:52 Subjective: Asked to see patient about lightheadedness. He is concerned that he might have a stroke. Nurse reports that he is also very concerned regarding possible adverse effects of tamsulosin including facial swelling. It is also reported that he has had increased anxiety and hopelessness today. He continues to be concerned that he urinates more fluid than he takes in. He is not aware of nocturia but says that the medications are putting him into a deep sleep at night. Objective: Vital Signs Temp Pulse Resp BP Pulse Ox 36.8 C 78 16 146/104 H 95 10/29/17 00:30 10/29/17 12:02 10/29/17 12:02 10/29/17 12:02 10/29/17 12:02 Laboratory Results 10/23/17 06:30 Physical Exam - Physical Exam General Appearance: WD/WN, alert, no apparent distress Respiratory: No respiratory distress, No accessory muscle use Cardiac/Chest: other (Vitals reviewed. No orthostatic hypotension or tachycardia.) Skin: normal color, warm/dry Neuro/Psych: no motor/sensory deficits, alert, oriented x 3, depressed affect ICD10 Worksheet Patient Problems: Problems Problem Status Onset Bipolar affective, manic, severe w/ psych Acute Suicidal ideation Acute
--- NOTE | 2017-10-29 16:26 | SOAPPROG ---
SOAP Progress Note Assessment/Plan: Assessment: Plan: 10/23/17 19:53 MDD: Remains severely depressed with paranoid delusions. Will [facility]. Await pre- auth for ECT. 10/24/17 19:19 MDD: No change. Will attempt to secure reasonable plan for ECT, but will not begin acute course until reasonable outpatient plan is in place. 10/25/17 11:41 MDD: Worsening. The psychosis is more evident today. He is clearly gravely disabled. The severity of his symptoms and his past response to ECT are indicators for additional ECT treatment at this time. I do not believe he is able to adequately care for his basic needs in the community at this time and family is adamant that they are unable to care for him due to the severity of his symptoms. Will attempt to obtain additional inpatient days to allow for an adequate acute course of treatment. 10/28/17 11:31 MDD: Remains severely depressed with continued delusional psychosis and grave disability. The latter is based on his inability to formulate a plan to care for himself, act in his own interests or effectively communicate his needs. Will [facility]. 10/29/17 16:26 MDD: Severe psychotic depression persists. Will [facility] inc: ECT. Pt remains gravely disabled and unable to care for himself. Subjective: Pt seen, discussed with staff. Reports feeling "terrible, just terrible." Staff reports pt had a difficult interaction with his last evening. He continues to perseverate on somatic preoccupations inc: bowels, kidneys, tinnitus. Continues to state he is unable to care for himself and can identify no options for the future. Objective: Vital Signs Temp Pulse Resp BP Pulse Ox 36.8 C 78 16 146/104 H 95 10/29/17 00:30 10/29/17 12:02 10/29/17 12:02 10/29/17 12:02 10/29/17 12:02 Laboratory Results 10/23/17 06:30 MSE: Prominent psychomotor retardation continues. Speech is low and slow, frequently mumbled. Affect is dysphoric, blunted, stable. Mood is "terrible." TP is perseverative, unable to focus on topics other than somatic thoughts. TC reveals somatic delusions, paranoia. States, "I'm a very bad person and everyone knows it." - Time Spent With Patient Time Spent With Patient: 25" ICD10 Worksheet Patient Problems: Problems Problem Status Onset Bipolar affective, manic, severe w/ psych Acute Suicidal ideation Acute
[2017-10-29] MEDS: QUEtiapine FUMARATE 100 MG TAB PO SCH (17:54)
[2017-10-29] MEDS: clonazePAM 1 MG TAB PO SCH (17:54)
[2017-10-30] MEDS ORDERED: LIDOCAINE 2% 5 ML SDV ID ONE (04:00)
[2017-10-30] MEDS ORDERED: CITRIC ACID/SODIUM CITRATE 30 ML UDCUP PO ONE (04:00)
[2017-10-30] MEDS ORDERED: NS 1,000 ML IV ONE (04:00)
[2017-10-30] MEDS ORDERED: ONDANSETRON DISINTEGRATING 4 MG TAB PO ONE (04:00)
[2017-10-30] MEDS ORDERED: MIDAZOLAM 2 MG/2 ML VIAL ONE (05:36)
[2017-10-30] MEDS ORDERED: ONDANSETRON 4 MG/2 ML VIAL ONE (05:37)
[2017-10-30] MEDS ORDERED: GLYCOPYRROLATE 0.2 MG/1 ML VIAL ONE (05:37)
[2017-10-30] MEDS ORDERED: fentaNYL 100 MCG/2 ML INJ ONE (05:37)
[2017-10-30] MEDS ORDERED: LABETALOL HCL 5 MG/ML 20 ML MDV ONE (05:37)
[2017-10-30] MEDS ORDERED: ETOMIDATE 20 MG/10 ML VIAL ONE (05:37)
[2017-10-30] MEDS ORDERED: LIDOCAINE 2% 5 ML SDV ONE (05:37)
[2017-10-30] MEDS ORDERED: ROCURONIUM 50 MG/5 ML VIAL ONE (05:38)
[2017-10-30] MEDS ORDERED: SUCCINYLCHOLINE CHLORIDE 200 MG/10 ML VIAL ONE (05:39)
[2017-10-30] MEDS ORDERED: ONDANSETRON DISINTEGRATING 4 MG TAB ONE (06:06)
[2017-10-30] MEDS ORDERED: CITRIC ACID/SODIUM CITRATE 30 ML UDCUP ONE (06:06)
[2017-10-30] MEDS: amLODIPine BESYLATE 5 MG TAB PO SCH (10:08)
[2017-10-30] MEDS: LOSARTAN POTASSIUM 25 MG TAB PO SCH (10:10)
[2017-10-30] MEDS: TAMSULOSIN HCL 0.4 MG CAP PO SCH (10:26)
[2017-10-30] MEDS: MAGNESIUM HYDROXIDE 30 ML UDCUP PO PRN (13:36)
[2017-10-30] MEDS: clonazePAM 1 MG TAB PO SCH (20:24)
[2017-10-30] MEDS: QUEtiapine FUMARATE 100 MG TAB PO SCH ×2 (20:24→20:25)
[2017-10-31] MEDS: TAMSULOSIN HCL 0.4 MG CAP PO SCH (08:12)
[2017-10-31] MEDS: amLODIPine BESYLATE 5 MG TAB PO SCH (08:47)
[2017-10-31] MEDS: LOSARTAN POTASSIUM 25 MG TAB PO SCH (08:49)
--- NOTE | 2017-10-31 11:13 | SOAPPROG ---
SOAP Progress Note Assessment/Plan: Assessment: Plan: 10/23/17 19:53 MDD: Remains severely depressed with paranoid delusions. Will [facility]. Await pre- auth for ECT. 10/24/17 19:19 MDD: No change. Will attempt to secure reasonable plan for ECT, but will not begin acute course until reasonable outpatient plan is in place. 10/25/17 11:41 MDD: Worsening. The psychosis is more evident today. He is clearly gravely disabled. The severity of his symptoms and his past response to ECT are indicators for additional ECT treatment at this time. I do not believe he is able to adequately care for his basic needs in the community at this time and family is adamant that they are unable to care for him due to the severity of his symptoms. Will attempt to obtain additional inpatient days to allow for an adequate acute course of treatment. 10/28/17 11:31 MDD: Remains severely depressed with continued delusional psychosis and grave disability. The latter is based on his inability to formulate a plan to care for himself, act in his own interests or effectively communicate his needs. Will [facility]. 10/29/17 16:26 MDD: Severe psychotic depression persists. Will [facility] inc: ECT. Pt remains gravely disabled and unable to care for himself. 10/31/17 11:13 MDD: Beginning to see improvement in affect. Remains severely depressed, with continued somatic delusions. These have transferred to the ECT itself now which is concerning. WIll [facility], monitor. Subjective: LATE ENTRY FOR 10/30/17. Pt is seen on morning and afternoon rounds, received ECT without complication. He was anxious this morning and mentioned to staff that he may not want to do ECT due to fear "it will harm me." I reviewed this with him and he was agreeable to proceed, offering no specific concerns. He was much brighter in the afternoon, smiling and stated he felt better. Objective: Vital Signs Temp Pulse Resp BP Pulse Ox 36.9 C 87 12 119/79 97 10/31/17 09:25 10/31/17 09:25 10/31/17 09:25 10/31/17 09:25 10/31/17 09:25 Laboratory Results 10/23/17 06:30 - Time Spent With Patient Time Spent With Patient: 35" ICD10 Worksheet Patient Problems: Problems Problem Status Onset Bipolar affective, manic, severe w/ psych Acute Suicidal ideation Acute
--- NOTE | 2017-10-31 11:15 | SOAPPROG ---
SOAP Progress Note Assessment/Plan: Assessment: Plan: 10/23/17 19:53 MDD: Remains severely depressed with paranoid delusions. Will [facility]. Await pre- auth for ECT. 10/24/17 19:19 MDD: No change. Will attempt to secure reasonable plan for ECT, but will not begin acute course until reasonable outpatient plan is in place. 10/25/17 11:41 MDD: Worsening. The psychosis is more evident today. He is clearly gravely disabled. The severity of his symptoms and his past response to ECT are indicators for additional ECT treatment at this time. I do not believe he is able to adequately care for his basic needs in the community at this time and family is adamant that they are unable to care for him due to the severity of his symptoms. Will attempt to obtain additional inpatient days to allow for an adequate acute course of treatment. 10/28/17 11:31 MDD: Remains severely depressed with continued delusional psychosis and grave disability. The latter is based on his inability to formulate a plan to care for himself, act in his own interests or effectively communicate his needs. Will [facility]. 10/29/17 16:26 MDD: Severe psychotic depression persists. Will [facility] inc: ECT. Pt remains gravely disabled and unable to care for himself. 10/31/17 11:13 MDD: Beginning to see improvement in affect. Remains severely depressed, with continued somatic delusions. These have transferred to the ECT itself now which is concerning. WIll [facility], monitor. 10/31/17 11:15 MDD: Continued slow improvement though remains severely ill. [facility]. Subjective: Pt seen, discussed with staff. Reports feeling "a little better" today. Negative, somatic perseverations continue. He is, however, eating better. Unable to advocate for himself with his . Objective: Vital Signs Temp Pulse Resp BP Pulse Ox 36.9 C 87 12 119/79 97 10/31/17 09:25 10/31/17 09:25 10/31/17 09:25 10/31/17 09:25 10/31/17 09:25 Laboratory Results 10/23/17 06:30 MSE: Constricted, anxious, dysphoric affect. Mood is "very depressed." TP linear. TC reveals paranoid and somatic delusions. - Time Spent With Patient Time Spent With Patient: 35" ICD10 Worksheet Patient Problems: Problems Problem Status Onset Bipolar affective, manic, severe w/ psych Acute Suicidal ideation Acute
[2017-10-31] MEDS: clonazePAM 1 MG TAB PO SCH (18:04)
[2017-10-31] MEDS: QUEtiapine FUMARATE 100 MG TAB PO SCH (20:55)
[2017-11-01] MEDS ORDERED: ONDANSETRON DISINTEGRATING 4 MG TAB PO ONE (04:00)
[2017-11-01] MEDS ORDERED: LIDOCAINE 2% 5 ML SDV ID ONE (04:00)
[2017-11-01] MEDS ORDERED: CITRIC ACID/SODIUM CITRATE 30 ML UDCUP PO ONE (04:00)
[2017-11-01] MEDS ORDERED: NS 1,000 ML IV ONE (04:00)
[2017-11-01] MEDS ORDERED: fentaNYL 100 MCG/2 ML INJ ONE (05:02)
[2017-11-01] MEDS ORDERED: MIDAZOLAM 2 MG/2 ML VIAL ONE (05:02)
[2017-11-01] MEDS ORDERED: ETOMIDATE 20 MG/10 ML VIAL ONE (05:03)
[2017-11-01] MEDS ORDERED: ONDANSETRON 4 MG/2 ML VIAL ONE (05:03)
[2017-11-01] MEDS ORDERED: SUCCINYLCHOLINE CHLORIDE 200 MG/10 ML VIAL ONE (05:03)
[2017-11-01] MEDS ORDERED: GLYCOPYRROLATE 0.2 MG/1 ML VIAL ONE (05:03)
[2017-11-01] MEDS ORDERED: ROCURONIUM 50 MG/5 ML VIAL ONE (05:03)
[2017-11-01] MEDS: amLODIPine BESYLATE 5 MG TAB PO SCH (06:36)
[2017-11-01] MEDS: LOSARTAN POTASSIUM 25 MG TAB PO SCH (06:36)
[2017-11-01] MEDS ORDERED: CITRIC ACID/SODIUM CITRATE 30 ML UDCUP ONE (08:02)
[2017-11-01] MEDS ORDERED: ONDANSETRON DISINTEGRATING 4 MG TAB ONE (08:02)
[2017-11-01] MEDS: TAMSULOSIN HCL 0.4 MG CAP PO SCH (09:03)
[2017-11-01] MEDS ORDERED: ONDANSETRON DISINTEGRATING 4 MG TAB PO PRN (09:10)
[2017-11-01] MEDS ORDERED: PROMETHAZINE HCL 25 MG TAB PO PRN (09:10)
[2017-11-01] MEDS ORDERED: ZOLPIDEM TARTRATE 5 MG TAB PO PRN (09:13)
--- NOTE | 2017-11-01 11:50 | SOAPPROG ---
SOAP Progress Note Assessment/Plan: Assessment: MDD with somatic delusion Plan: 11/01/17 11:43 Pt highly depressed still with blunted affect, PMR, poor eye contact, impoverished speech, negativism/hopelessness/sense of futility. Poor focus and concentration. Still with impaired appetite. Plan: cont acute ECT. Will hold hs klonopin and have pt use ambien on those nights pre ECT. Will also add theophylline liquid power tong operator for procedure....all due to abbreviated motor seizure. Have checked some further "organic" labs. Objective: Vital Signs Temp Pulse Resp BP Pulse Ox 36.6 C 93 12 121/85 H 95 11/01/17 09:43 11/01/17 11:12 11/01/17 11:12 11/01/17 11:12 11/01/17 11:12 Laboratory Results 10/23/17 06:30 ICD10 Worksheet Patient Problems: Problems Problem Status Onset Bipolar affective, manic, severe w/ psych Acute Suicidal ideation Acute
[2017-11-01] MEDS: clonazePAM 1 MG TAB PO SCH (18:56)
[2017-11-01] MEDS: QUEtiapine FUMARATE 100 MG TAB PO SCH (18:57)
[2017-11-02] MEDS: LOSARTAN POTASSIUM 25 MG TAB PO SCH (08:37)
[2017-11-02] MEDS: amLODIPine BESYLATE 5 MG TAB PO SCH (08:38)
[2017-11-02] MEDS: TAMSULOSIN HCL 0.4 MG CAP PO SCH (08:42)
[2017-11-02] MEDS: LORazepam 1 MG TAB PO PRN (09:08)
[2017-11-02] MEDS: MAGNESIUM HYDROXIDE 30 ML UDCUP PO PRN (09:08)
[2017-11-02 10:58] LABS: VITAMIN D 25-HYDROXY TOTAL 22.8 ng/mL (30.0-100.0)
[2017-11-02 12:32] LABS: HIGHLY SENSITIVE CRP 0.3 mg/L
--- NOTE | 2017-11-02 13:02 | SOAPPROG ---
SOAP Progress Note Assessment/Plan: Assessment: Per Dr. Maciel's note: MDD with somatic delusion Plan: 11/01/17 11:43 Pt highly depressed still with blunted affect, PMR, poor eye contact, impoverished speech, negativism/hopelessness/sense of futility. Poor focus and concentration. Still with impaired appetite. Plan: cont acute ECT. Will hold hs klonopin and have pt use ambien on those nights pre ECT. Will also add theophylline liquid electronics test engineer for procedure....all due to abbreviated motor seizure. Have checked some further "organic" labs. 11/02/17 12:57 1. Recent labs were all WNL (C- reactive protein, TSH, etc.) with exception of Vit D which was low. 2. Will start Vit D3 2,000 units daily 3. Patient continues to c/o constipation. Is still taking stool softener, MOM. 4. CCM - patient remains morose, hopeless, somatically preoccupied. Subjective: Met with patient, reviewed chart and d/w staff. Patient presents depressed, psychomotor retardation, hopeless. He does go to group therapy and stays out of his room when there are activities and meals. He tells MD that he's "not feeling too good." He is referring mostly to his mood and lack of optimism about future. He denies any current SI or intent or plan to hurt himself, but doesn't see much to be positive about. Objective: Vital Signs Temp Pulse Resp BP Pulse Ox 36.5 C 78 13 135/89 H 97 11/02/17 08:42 11/02/17 08:42 11/02/17 08:42 11/02/17 08:42 11/02/17 08:42 Laboratory Results 10/23/17 06:30 MSE: Affect: Flat Mood: "Not too good" TP: Slow, linear Speech: Impoverished TC: Denies any SI/HI, somatic delusions Insight/Judgment: Poor - Time Spent With Patient Time Spent With Patient: 20" - Pending Discharge Pending Discharge Within 24 Hours: No Pending Discharge Within 48 Hours: No ICD10 Worksheet Patient Problems: Problems Problem Status Onset Bipolar affective, manic, severe w/ psych Acute Suicidal ideation Acute
[2017-11-02] MEDS ORDERED: clonazePAM 0.5 MG TAB ONE (19:17)
[2017-11-02] MEDS: QUEtiapine FUMARATE 100 MG TAB PO SCH (19:40)
[2017-11-02] MEDS: clonazePAM 1 MG TAB PO SCH (19:41)
[2017-11-03] MEDS: LOSARTAN POTASSIUM 25 MG TAB PO SCH (08:35)
[2017-11-03] MEDS: amLODIPine BESYLATE 5 MG TAB PO SCH (08:35)
[2017-11-03] MEDS: CHOLECALCIFEROL VIT D3 2,000 UNITS TAB/CAP PO SCH (08:35)
[2017-11-03] MEDS: TAMSULOSIN HCL 0.4 MG CAP PO SCH (08:35)
--- NOTE | 2017-11-03 11:39 | SOAPPROG ---
SOAP Progress Note Assessment/Plan: Assessment: Per Dr. Maciel's note: MDD with somatic delusion Plan: 11/01/17 11:43 Pt highly depressed still with blunted affect, PMR, poor eye contact, impoverished speech, negativism/hopelessness/sense of futility. Poor focus and concentration. Still with impaired appetite. Plan: cont acute ECT. Will hold hs klonopin and have pt use ambien on those nights pre ECT. Will also add theophylline liquid injection mold technician for procedure....all due to abbreviated motor seizure. Have checked some further "organic" labs. 11/02/17 12:57 1. Recent labs were all WNL (C- reactive protein, TSH, etc.) with exception of Vit D which was low. 2. Will start Vit D3 2,000 units daily 3. Patient continues to c/o constipation. Is still taking stool softener, MOM. 4. CCM - patient remains morose, hopeless, somatically preoccupied. 11/03/17 11:33 1. Patient started on Vitamin D3 w/o complaints. 2. Homocysteine pending. 3. Patient reports some bowel movements, but says "I'm not sure" when asked if colace, prune juice, MOM have been helpful. 4. Next ECT on Saturday. 5. Per staff report, patient eating 100% of meals and sleeping 10+ hrs/night. Subjective: Met with patient, reviewed chart and d/w staff. Patient presents very despondent , flat affect, downcast gaze, shuffling up & down hallway, low energy levels. Despite this, patient has attended all groups despite being only one of two patients in each group. He has eaten 100% of breakfast and lunch. He tells MD, "I'm having trouble with everything....nothing is functioning." When MD tries to ask specific questions about whether remedies for constipation, which patient has complained about for several days, have been effective, there is a long delay when patient does not make eye contact, and finally says, "I'm not sure." Patient says, "mostly I just feel exhausted." However, he is able to have quite lengthy conversations with RN, CC and staff about his "failures" and how he has "let my family down" and his anxiety about "going to court" and what he will do for work in future. Patient denies any thoughts, intent or plan to harm himself or anyone else. Objective: Vital Signs Temp Pulse Resp BP Pulse Ox 36.7 C 76 12 135/92 H 94 11/03/17 00:30 11/03/17 00:30 11/03/17 00:30 11/03/17 00:30 11/03/17 00:30 Laboratory Results 10/23/17 06:30 MSE: Affect: Flat Mood: "Depressed" "Exhausted" TP: Tangential TC: Denies any SI/HI, question paranoia (worried about court case and "going to senior care") and somatic delusions Insight/Judgment: Poor - Time Spent With Patient Time Spent With Patient: 20" - Pending Discharge Pending Discharge Within 24 Hours: No Pending Discharge Within 48 Hours: No ICD10 Worksheet Patient Problems: Problems Problem Status Onset Bipolar affective, manic, severe w/ psych Acute Suicidal ideation Acute
[2017-11-03] MEDS: QUEtiapine FUMARATE 100 MG TAB PO SCH (18:53)
[2017-11-04] MEDS ORDERED: NS 1,000 ML IV ONE (04:00)
[2017-11-04] MEDS ORDERED: ONDANSETRON DISINTEGRATING 4 MG TAB PO ONE (04:00)
[2017-11-04] MEDS ORDERED: LIDOCAINE 2% 5 ML SDV ID ONE (04:00)
[2017-11-04] MEDS ORDERED: CITRIC ACID/SODIUM CITRATE 30 ML UDCUP PO ONE (04:00)
[2017-11-04] MEDS: amLODIPine BESYLATE 5 MG TAB PO SCH (05:43)
[2017-11-04] MEDS: LOSARTAN POTASSIUM 25 MG TAB PO SCH (05:44)
[2017-11-04] MEDS ORDERED: THEOPHYLLINE ORAL SOLUTION 80 MG/15 ML UDCUP PO ONE ×2 (05:45→09:10)
[2017-11-04] MEDS ORDERED: ONDANSETRON DISINTEGRATING 4 MG TAB ONE (06:31)
[2017-11-04] MEDS ORDERED: CITRIC ACID/SODIUM CITRATE 30 ML UDCUP ONE (06:32)
[2017-11-04] MEDS ORDERED: MIDAZOLAM 2 MG/2 ML VIAL ONE (06:43)
[2017-11-04] MEDS ORDERED: fentaNYL 100 MCG/2 ML INJ ONE (06:43)
[2017-11-04] MEDS ORDERED: GLYCOPYRROLATE 0.2 MG/1 ML VIAL ONE (06:44)
[2017-11-04] MEDS ORDERED: ROCURONIUM 50 MG/5 ML VIAL ONE (06:44)
[2017-11-04] MEDS ORDERED: SUCCINYLCHOLINE CHLORIDE 200 MG/10 ML VIAL ONE (06:44)
[2017-11-04] MEDS ORDERED: ETOMIDATE 20 MG/10 ML VIAL ONE (06:44)
[2017-11-04] MEDS ORDERED: ONDANSETRON 4 MG/2 ML VIAL ONE (06:44)
[2017-11-04] MEDS: CHOLECALCIFEROL VIT D3 2,000 UNITS TAB/CAP PO SCH (09:45)
[2017-11-04] MEDS: TAMSULOSIN HCL 0.4 MG CAP PO SCH (09:45)
--- NOTE | 2017-11-04 11:13 | SOAPPROG ---
SOAP Progress Note Assessment/Plan: Assessment: Plan: 10/23/17 19:53 MDD: Remains severely depressed with paranoid delusions. Will [facility]. Await pre- auth for ECT. 10/24/17 19:19 MDD: No change. Will attempt to secure reasonable plan for ECT, but will not begin acute course until reasonable outpatient plan is in place. 10/25/17 11:41 MDD: Worsening. The psychosis is more evident today. He is clearly gravely disabled. The severity of his symptoms and his past response to ECT are indicators for additional ECT treatment at this time. I do not believe he is able to adequately care for his basic needs in the community at this time and family is adamant that they are unable to care for him due to the severity of his symptoms. Will attempt to obtain additional inpatient days to allow for an adequate acute course of treatment. 10/28/17 11:31 MDD: Remains severely depressed with continued delusional psychosis and grave disability. The latter is based on his inability to formulate a plan to care for himself, act in his own interests or effectively communicate his needs. Will [facility]. 10/29/17 16:26 MDD: Severe psychotic depression persists. Will [facility] inc: ECT. Pt remains gravely disabled and unable to care for himself. 10/31/17 11:13 MDD: Beginning to see improvement in affect. Remains severely depressed, with continued somatic delusions. These have transferred to the ECT itself now which is concerning. WIll [facility], monitor. 10/31/17 11:15 MDD: Continued slow improvement though remains severely ill. [facility]. 11/04/17 11:14 MDD: Some ongoing improvement. Has had five acute course ECT treatments. Will [facility]. Pt refuses to consider other psychotropic medications at this time. Subjective: Pt seen, discussed with staff, chart reviewed. He remains morose, withdrawn, helpless, hopeless. Continues to believe he will be arrested for crimes he may have inadvertently committed and that others believe he is a bad person. He also continues to focus on physical issues. States he doesn't sleep at all though staff documents 7-8 hours per night. He states he didn't eat anything over the weekend and staff documented 100% of all meals. Underwent ECT this morning without complication. Objective: Vital Signs Temp Pulse Resp BP Pulse Ox 36.1 C 91 20 158/112 H 96 11/04/17 09:18 11/04/17 09:18 11/04/17 09:18 11/04/17 09:18 11/04/17 09:18 Laboratory Results 10/23/17 06:30 MSE: Moderately anxious, guarded. Affect is dysphoric, constricted, stable, approp. Mood is "very depressed." TP linear though perseverates on negative themes. TC reveals paranoid and somatic delusions. - Time Spent With Patient Time Spent With Patient: 35" ICD10 Worksheet Patient Problems: Problems Problem Status Onset Bipolar affective, manic, severe w/ psych Acute Suicidal ideation Acute
[2017-11-04] MEDS: MAGNESIUM HYDROXIDE 30 ML UDCUP PO PRN (18:18)
[2017-11-04] MEDS: QUEtiapine FUMARATE 100 MG TAB PO SCH (20:19)
[2017-11-04] MEDS: LORazepam 1 MG TAB PO PRN (20:23)
[2017-11-04] MEDS: clonazePAM 1 MG TAB PO SCH (20:23)
[2017-11-05] MEDS: LOSARTAN POTASSIUM 25 MG TAB PO SCH (08:17)
[2017-11-05] MEDS: CHOLECALCIFEROL VIT D3 2,000 UNITS TAB/CAP PO SCH (08:18)
[2017-11-05] MEDS: CHOLECALCIFEROL VIT D3 1,000 UNITS TAB PO SCH (08:19)
[2017-11-05] MEDS: TAMSULOSIN HCL 0.4 MG CAP PO SCH (08:19)
[2017-11-05] MEDS: amLODIPine BESYLATE 5 MG TAB PO SCH (09:13)
[2017-11-05] MEDS: MAGNESIUM HYDROXIDE 30 ML UDCUP PO PRN (10:06)
--- NOTE | 2017-11-05 11:46 | SOAPPROG ---
SOAP Progress Note Assessment/Plan: Assessment: Plan: 10/23/17 19:53 MDD: Remains severely depressed with paranoid delusions. Will [facility]. Await pre- auth for ECT. 10/24/17 19:19 MDD: No change. Will attempt to secure reasonable plan for ECT, but will not begin acute course until reasonable outpatient plan is in place. 10/25/17 11:41 MDD: Worsening. The psychosis is more evident today. He is clearly gravely disabled. The severity of his symptoms and his past response to ECT are indicators for additional ECT treatment at this time. I do not believe he is able to adequately care for his basic needs in the community at this time and family is adamant that they are unable to care for him due to the severity of his symptoms. Will attempt to obtain additional inpatient days to allow for an adequate acute course of treatment. 10/28/17 11:31 MDD: Remains severely depressed with continued delusional psychosis and grave disability. The latter is based on his inability to formulate a plan to care for himself, act in his own interests or effectively communicate his needs. Will [facility]. 10/29/17 16:26 MDD: Severe psychotic depression persists. Will [facility]: ECT. Pt remains gravely disabled and unable to care for himself. 10/31/17 11:13 MDD: Beginning to see improvement in affect. Remains severely depressed, with continued somatic delusions. These have transferred to the ECT itself now which is concerning. WIll [facility], monitor. 10/31/17 11:15 MDD: Continued slow improvement though remains severely ill. CCM. 11/04/17 11:14 MDD: Some ongoing improvement. Has had five acute course ECT treatments. Will [facility]. Pt refuses to consider other psychotropic medications at this time. 11/05/17 11:46 MDD: Continued gradual improvement. [facility]. Subjective: Pt seen, discussed with staff. Reports feeling "very depressed, at the very bottom." Remains sullen, withdrawn, but eating and sleeping well. Grooming is good. Cognition is very good with little notable deficits. Mood remains flat and he continues to ruminate on negative themes. Worked with him to reframe some of this and he consistently returned to these themes. Objective: Vital Signs Temp Pulse Resp BP Pulse Ox 36.6 C 77 12 109/75 96 11/05/17 00:30 11/05/17 00:30 11/05/17 00:30 11/05/17 00:30 11/05/17 00:30 Laboratory Results 10/23/17 06:30 MSE: Well-groomed, pleasant and coop. Affect is dysphoric, constricted, stable. Mood is "very depressed." TP linear though perseverative. TC reveals continued somatic preoccupations and delusions, paranoia. - Time Spent With Patient Time Spent With Patient: 25" ICD10 Worksheet Patient Problems: Problems Problem Status Onset Bipolar affective, manic, severe w/ psych Acute Suicidal ideation Acute
[2017-11-05] MEDS: clonazePAM 1 MG TAB PO SCH (17:34)
[2017-11-05] MEDS: QUEtiapine FUMARATE 100 MG TAB PO SCH (18:50)
[2017-11-05] MEDS: LORazepam 1 MG TAB PO PRN (18:54)
[2017-11-06] MEDS ORDERED: NS 1,000 ML IV ONE (04:00)
[2017-11-06] MEDS ORDERED: CITRIC ACID/SODIUM CITRATE 30 ML UDCUP PO ONE (04:00)
[2017-11-06] MEDS ORDERED: ONDANSETRON DISINTEGRATING 4 MG TAB PO ONE (04:00)
[2017-11-06] MEDS ORDERED: LIDOCAINE 2% 5 ML SDV ID ONE (04:00)
[2017-11-06] MEDS: LOSARTAN POTASSIUM 25 MG TAB PO SCH (06:19)
[2017-11-06] MEDS: amLODIPine BESYLATE 5 MG TAB PO SCH (06:20)
[2017-11-06] MEDS ORDERED: THEOPHYLLINE ORAL SOLUTION 80 MG/15 ML UDCUP PO ONE (06:30)
[2017-11-06] MEDS ORDERED: fentaNYL 100 MCG/2 ML INJ ONE (06:34)
[2017-11-06] MEDS ORDERED: ETOMIDATE 20 MG/10 ML VIAL ONE (06:35)
[2017-11-06] MEDS ORDERED: MIDAZOLAM 2 MG/2 ML VIAL ONE (06:35)
[2017-11-06] MEDS ORDERED: ROCURONIUM 50 MG/5 ML VIAL ONE (06:35)
[2017-11-06] MEDS ORDERED: GLYCOPYRROLATE 0.2 MG/1 ML VIAL ONE (06:35)
[2017-11-06] MEDS ORDERED: SUCCINYLCHOLINE CHLORIDE 200 MG/10 ML VIAL ONE (06:35)
[2017-11-06] MEDS ORDERED: ONDANSETRON 4 MG/2 ML VIAL ONE (06:35)
[2017-11-06] MEDS ORDERED: ONDANSETRON DISINTEGRATING 4 MG TAB ONE (08:14)
[2017-11-06] MEDS ORDERED: CITRIC ACID/SODIUM CITRATE 30 ML UDCUP ONE (08:14)
[2017-11-06] MEDS: CHOLECALCIFEROL VIT D3 1,000 UNITS TAB PO SCH (12:24)
[2017-11-06] MEDS: CHOLECALCIFEROL VIT D3 2,000 UNITS TAB/CAP PO SCH (12:25)
[2017-11-06] MEDS: TAMSULOSIN HCL 0.4 MG CAP PO SCH (12:25)
--- NOTE | 2017-11-06 15:19 | SOAPPROG ---
SOAP Progress Note Assessment/Plan: Assessment: Plan: 10/23/17 19:53 MDD: Remains severely depressed with paranoid delusions. Will [facility]. Await pre- auth for ECT. 10/24/17 19:19 MDD: No change. Will attempt to secure reasonable plan for ECT, but will not begin acute course until reasonable outpatient plan is in place. 10/25/17 11:41 MDD: Worsening. The psychosis is more evident today. He is clearly gravely disabled. The severity of his symptoms and his past response to ECT are indicators for additional ECT treatment at this time. I do not believe he is able to adequately care for his basic needs in the community at this time and family is adamant that they are unable to care for him due to the severity of his symptoms. Will attempt to obtain additional inpatient days to allow for an adequate acute course of treatment. 10/28/17 11:31 MDD: Remains severely depressed with continued delusional psychosis and grave disability. The latter is based on his inability to formulate a plan to care for himself, act in his own interests or effectively communicate his needs. Will [facility]. 10/29/17 16:26 MDD: Severe psychotic depression persists. Will [facility]: ECT. Pt remains gravely disabled and unable to care for himself. 10/31/17 11:13 MDD: Beginning to see improvement in affect. Remains severely depressed, with continued somatic delusions. These have transferred to the ECT itself now which is concerning. WIll [facility], monitor. 10/31/17 11:15 MDD: Continued slow improvement though remains severely ill. [facility]. 11/04/17 11:14 MDD: Some ongoing improvement. Has had five acute course ECT treatments. Will [facility]. Pt refuses to consider other psychotropic medications at this time. 11/05/17 11:46 MDD: Continued gradual improvement. [facility]. 11/06/17 15:18 MDD: Slow improvement with ongoing delusions. Will [facility], monitor. Subjective: Pt seen, discussed with staff. Negative, somatically focused this morning. States he has a tremor in his right hand that has emerged over the past two days and he believes he has Parkinson's Dz. He underwent bilateral ECT without complication today. Objective: Vital Signs Temp Pulse Resp BP Pulse Ox 36.8 C 80 14 125/80 H 96 11/06/17 10:15 11/06/17 12:15 11/06/17 12:15 11/06/17 12:15 11/06/17 12:15 Laboratory Results 10/23/17 06:30 MSE: Anxious, perseverative. Affect is o/w dysphoric, constricted, stable. Mood is "depressed." TP linear thought perseverative. TC reveals continued somatic and paranoid delusions. - Time Spent With Patient Time Spent With Patient: 35" ICD10 Worksheet Patient Problems: Problems Problem Status Onset Bipolar affective, manic, severe w/ psych Acute Suicidal ideation Acute
[2017-11-06] MEDS: MAGNESIUM HYDROXIDE 30 ML UDCUP PO PRN (15:22)
[2017-11-06] MEDS: clonazePAM 1 MG TAB PO SCH (20:23)
[2017-11-06] MEDS: QUEtiapine FUMARATE 100 MG TAB PO SCH (20:23)
[2017-11-06] MEDS: LORazepam 1 MG TAB PO PRN (20:30)
[2017-11-07] MEDS: amLODIPine BESYLATE 5 MG TAB PO SCH (08:34)
[2017-11-07] MEDS: LOSARTAN POTASSIUM 25 MG TAB PO SCH (08:35)
[2017-11-07] MEDS: CHOLECALCIFEROL VIT D3 1,000 UNITS TAB PO SCH (08:37)
[2017-11-07 08:41] VITALS: BP 113/74
[2017-11-07 08:47] VITALS: PULSE 79; RESP 12; TEMP 97.3; O2SAT 96
[2017-11-07] MEDS: TAMSULOSIN HCL 0.4 MG CAP PO SCH (08:56)
== END 2017-11-07 11:12 | disposition home or self-care (01) | DRG 885 ==
LOC: BBEH 10-22 01:55
PROVIDERS: ADMIT Psychiatry & Neurology Psychiatry; ATTEND Psychiatry & Neurology Psychiatry
PROC: GZB4ZZZ Other Electroconvulsive Therapy (ICD-10-PCS; principal; 2017-10-25)
DX: F33.3 Major depressive disorder, recurrent, severe with psychotic symptoms (principal); I12.9 Hypertensive chronic kidney disease with stage 1 through stage 4 chronic kidney disease, or unspecified chronic kidney disease; N18.3 Chronic kidney disease, stage 3 (moderate); R07.9 Chest pain, unspecified; H93.19 Tinnitus, unspecified ear; G47.00 Insomnia, unspecified; K59.00 Constipation, unspecified
CPT/HCPCS: 80305; 82607-90; 86141-90; G0480; J0330; J1885; J2250; J2405; J3010; J3490